=== PATIENT | male | born 1980 | race Caucasian/White ===

== ENCOUNTER → 2019-09-22 08:03 | Outpatient (CLI) | payer BC, SELFPAY ==
--- NOTE | 2019-09-22 08:06 | CA_ITS ---
APPROVED REPORT EXAM: Comprehensive 2D, Doppler, and color-flow Echocardiogram Hypnotherapist: Theresa Fuller CRT Ht: 6 ft 0 in Wt: 197lbs BSA: 2.12 BP: 119/75 mmHg Indications: murmur 2D Dimensions LVOT 1.95 cm (M/F) 1.5-2.5 M-Mode Dimensions RVDd 2.32 cm (0.9-2.6) LVDd 5.92 cm (3.5-5.7) LVDs 3.67 cm (3.5-5.7) IVSd 2.12 cm (0.6-1.1) PWd 0.94 cm (0.6-1.1) EF (Teich) 67.40% FS 38.00% EDV (Teich) 174.60 mL ESV (Teich) 57.00 mL LV Diastology E/A Ratio 0.83 Mitral Valve MV A Velocity 74.00 (40-130 cm/s) Left Ventricle Left atrium is mildly enlarged, left ventricle is normal size, mild concentric left ventricular hypertrophy, visually estimated ejection fraction 55% with no regional wall motion abnormality. Grade 1 diastolic dysfunction seen without tissue Doppler evidence of raise left atrial pressure. Right Ventricle Right atrium and right ventricular normal size and contractility. Aortic Valve Aortic valve is bicuspid, there is fusion of the right and noncoronary cusp and calcification seen. There is mild aortic stenosis, there is aortic insufficiency present which is difficult to quantify it is likely moderate to severe range. If clinically indicated transesophageal echocardiogram is recommended. Mitral Valve Mitral valve is grossly normal. There is mild mitral regurgitation. Tricuspid Valve Tricuspid valve is grossly normal, there is mild tricuspid regurgitation. Pulmonic Valve Pulmonic valve is poorly visualized. Great Vessels Aortic root is normal size. Pericardium No significant pericardial effusion noted. Conclusion 1. Mildly enlarged left atrium, normal left ventricular size, mild concentric left ventricular hypertrophy, visually estimated ejection fraction 55% with no regional wall motion abnormality, grade 1 diastolic dysfunction seen without tissue Doppler evidence of raise left atrial pressure. 2. Thickened and calcified bicuspid aortic valve with mild aortic stenosis, there is aortic insufficiency present which is difficult to quantify, this is likely moderate to severe range, if clinically indicated a transesophageal echocardiogram is recommended. 3. Mild mitral and tricuspid regurgitation 4. No significant pericardial effusion noted. Electronically signed by : Brad Valentino, 09/23/2019 13:29:53
--- NOTE | 2019-09-22 08:41 | CT_ITS ---
PROCEDURE: CT CHEST W CON CLINCAL INDICATION: bicuspid aortic valve Congenital insufficiency of aortic valve COMPARISON: No exams were available for comparison TECHNIQUE: IV Contrast: 75ml Optiray 350 Axial images obtained with sagittal and coronal reformats. All CT scans at the facility use one or more dose reduction, viz: automated exposure control, ma/kV adjustment per patient size (including targeted exams where dose is matched to indication, i.e. head), or iterative reconstruction technique. FINDINGS: Normal heart size. There is calcification of the aortic valve. No evidence of aortic aneurysm or dissection. There is normal origin of the left main coronary artery and the right coronary artery. The ascending aorta measures up to 3.7 cm in transverse dimension and 3.6 cm in AP dimension. No evidence of pulmonary embolus. The The lungs are clear. 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 IMPRESSION: 1. Calcification of the aortic valve which is reported to be a bicuspid valve cysts with mild ectasias a of the as sending aorta at 3.7 cm 2. 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 Dictated by: Fahad Cox MD 09/24/2019 14:49 Electronically signed by Fahad Cox MD in [place] 09/24/2019 14:49
== END ==
PROVIDERS: Visit Provider Nurse Practitioner Family
DX: I35.1 Nonrheumatic aortic (valve) insufficiency (principal); Q23.1 Congenital insufficiency of aortic valve
CPT/HCPCS: 71260; 93306; Q9967

== ENCOUNTER → 2021-04-25 11:05 | Outpatient (CLI) | payer BC, SELFPAY ==
--- NOTE | 2021-04-25 11:07 | CA_ITS ---
APPROVED REPORT EXAM: Comprehensive 2D, Doppler, and color-flow Echocardiogram [employer] Machine Operator: Shasta Ferguson, [place], RVS Ht: 6 ft 0 in Wt: 193lbs BSA: 2.10 BP: 127/85 mmHg Indications: Murmur, Bicuspid AoV, , AI 2D Dimensions Aortic Root 3.10 cm LA Volume 58.40 mL Left Atrium 3.75 cm LA Volume Index 27.80 mL/m2 (M/F) 16-34 LVOT 2.13 cm (M/F) 1.5-2.5 M-Mode Dimensions RVDd 2.97 cm (0.9-2.6) LA Diam 4.69 cm (1.9-4.0) LVDd 5.93 cm (3.5-5.7) Ao Diam 3.28 cm (2.0-3.7) LVDs 3.60 cm (3.5-5.7) IVSd 1.49 cm (0.6-1.1) PWd 1.24 cm (0.6-1.1) EF (Teich) 68.90% EPSs 0.46 cm FS 39.30% EDV (Teich) 175.20 mL TAPSE 2.62 (<1.7) ESV (Teich) 54.40 mL LV Diastology E Decel Time 153.00 (160-240 msec) E/A Ratio 1.80 MED E' 9.40 (< 7 cm/sec) MED A' 11.30 cm/s E'/MED E' Ratio 9.29 (>14) LAT E' 10.40 (<10 cm/sec) LAT A' 9.40 cm/s E/LAT E' Ratio 8.39 (>14) Pulm Vein s 27.00 cm/sec Aortic Valve LVOT Max 137.00 (70-110 cm/s) LVOT VTI 28.40 cm AoV Peak Mathew. 271.00 (50-130 cm/s) AI PHT 543.00 ms AO Peak GR. 29.40 mmHg AO Mean GR. 15.90 (<5 mmHg) AO VTI 60.03 (18-25 cm) JUSTICE (VTI) 1.69 (2.5-4.5 cm2) Mitral Valve MV E Max Mathew. 87.00 (40-130 cm/s) MV A Velocity 49.00 (40-130 cm/s) E/A Ratio 1.80 MV Decel. Time 153.00 (160-240 ms) MV PHT 45.00 ms Pulmonary Valve PV Peak Velocity 115.00 (50-150 cm/s) Tricuspid Valve TR P. Velocity 230.00 cm/s RAP Estimate 10.00 mmHg RVSP 31.20 mmHg Left Ventricle Atrium is normal size, left ventricle is normal size, there is no concentric left ventricular hypertrophy, visually estimated ejection fraction 55% with no regional wall motion abnormality, diastolic parameters are within normal range. Right Ventricle Right atrium and right ventricle are normal size and contractility. Aortic Valve Aortic valve is thickened and calcified with some bicuspid aortic valve, mean gradient across valve is 18 mmHg, valve area is 1.62 cm??? represents mild aortic stenosis, there is moderate aortic insufficiency. Mitral Valve Mitral valve grossly normal, there is trace mitral regurgitation. Tricuspid Valve Tricuspid grossly normal, there is trace tricuspid regurgitation, tricuspid regurgitation jet velocity is inadequate for calculation of the right ventricular systolic pressure. Pulmonic Valve Pulmonic valve is poorly visualized. Great Vessels Aortic root is normal size. Pericardium No significant pericardial effusion noted. Conclusion 1. Normal left ventricular size, preserved left ventricular systolic function, visually estimated ejection fraction 55% with no regional wall motion abnormality, diastolic parameters are within normal range. 2. Bicuspid aortic valve with mild aortic stenosis, valve area is 1.62 cm???, there is moderate aortic insufficiency. 3. Trace mitral and tricuspid regurgitation. 4. No significant pericardial effusion noted. Electronically signed by : Brad Valentino, 04/25/2021 15:29:54
== END ==
PROVIDERS: PCP Family Medicine; Visit Provider Internal Medicine Cardiovascular Disease
DX: Q23.1 Congenital insufficiency of aortic valve (principal)
CPT/HCPCS: 93306